=== PATIENT | female | born 1935 | race Caucasian/White ===

== ENCOUNTER → 2021-05-08 | Outpatient (CLI) | payer OTHER ==
[2021-05-08 18:34] LABS: HEMOGLOBIN 12.9 gm/dl (12.3-15.3); RED BLOOD COUNT 4.28 M/UL (4.00-5.10); WHITE BLOOD COUNT 11.4 K/UL (4.5-11.0)
[2021-05-08 18:53] LABS: BUN/CREATININE RATIO 22 (0-10)
== END ==
LOC: LBRF 17:41
PROVIDERS: Family Medicine
DX: I13.0 Hypertensive heart and chronic kidney disease with heart failure and stage 1 through stage 4 chronic kidney disease, or unspecified chronic kidney disease (principal); I50.32 Chronic diastolic (congestive) heart failure; N18.9 Chronic kidney disease, unspecified
CPT/HCPCS: 80053; 85027

== ENCOUNTER 2021-09-15 14:22 | Inpatient (IN) | payer OTHER ==
[~2021-09-15] VITALS: Ht 162.6 cm; Wt 71.2 kg
[2021-09-15 15:21] LABS: RED BLOOD COUNT 4.46 M/UL (4.00-5.10)
[2021-09-15 15:42] LABS: BUN/CREATININE RATIO 15 (0-10)
[2021-09-16 02:45] LABS: RED BLOOD COUNT 4.12 M/UL (4.00-5.10)
[2021-09-16 03:21] LABS: BUN/CREATININE RATIO 21 (0-10)
[2021-09-16] MEDS ORDERED: LOSARTAN POTASS25 MG PO (09:19)
[2021-09-16] MEDS ORDERED: MONTELUKAST SOD10 MG PO (09:19)
[2021-09-16] MEDS ORDERED: RALOXIFENE HCL60 MG PO (09:19)
[2021-09-16] MEDS ORDERED: NAMENDA10 MG PO (09:19)
[2021-09-16] MEDS ORDERED: MULTI-VITAMIN1 EACH PO (09:20)
[2021-09-16] MEDS ORDERED: DRISDOL1250 MCG PO (09:20)
[2021-09-16] MEDS ORDERED: DORZOLAMIDE HCL10 ML OU (09:20)
[2021-09-16] MEDS ORDERED: VITAMIN D325 MC6 PO (09:21)
--- NOTE | 2021-09-17 00:37 | NUR ---
DURING BEDSIDE REPORT DAYSHIFT RN STATED THAT "PATIENT ONLY HAD A WORING STRIP ALARM ON, THE BED ALARM WAS NOT WORKING". AFTER ASSESSING THE BED TO SEE WHY THE ALARM WAS NOT TURNING ON, i ALSO NOTICED THAT NONE OF THE ELECTRICAL CONTROLS WERE WORKING. I LOOKED AND THE BED WAS UNPLUGGED FROM THE ELECTRICAL OUTLET ON THE WALL. BED IS NOW PLUGGED IN AND BOTH THE BED AND STRIP ARLAM ARE ON AND WORKING.
--- NOTE | 2021-09-17 00:41 | NUR ---
[id number] PATIENT HAD A LARGE BM AND BEGAN TO PUT TISSUES DOWN IN HER BRIEF. HER HANDS AND GOWN WERE COVERED IN BM. SHE WAS REFUSING TO ALLOW THE TECH TO CHANGE HER. I ASKED ANOTHER RN TO HELP WITH CHANGING HER. THE PATIENT BEGAN TO PINCH AND DIG HER NAILS INTO US WE TRIED TO CHANGE HER. WE DID INFACT GET THE PATIENT ALL CLEANED UP AND INTO A NEW GOWN A BRIEF BUT SHE WAS CONFUSED AND COMBATIVE DURING THE PROCESS.
[2021-09-17 03:33] LABS: HEMOGLOBIN 12.3 gm/dl (12.3-15.3); RED BLOOD COUNT 4.18 M/UL (4.00-5.10); WHITE BLOOD COUNT 18.4 K/UL (4.5-11.0)
[2021-09-17 04:10] LABS: BUN/CREATININE RATIO 24 (0-10)
[2021-09-18 03:33] LABS: HEMOGLOBIN 11.6 gm/dl (12.3-15.3); RED BLOOD COUNT 4.01 M/UL (4.00-5.10)
[2021-09-18 04:15] LABS: BUN/CREATININE RATIO 18 (0-10); WHITE BLOOD COUNT 13.3 K/UL (4.5-11.0)
[2021-09-18 12:59] LABS: WHITE BLOOD COUNT 23.5 K/UL (4.5-11.0)
--- NOTE | 2021-09-18 17:45 | NUR ---
pt tansported per ems to home daughter aware. call to home health message left with no return call at this [email or web address].
== END 2021-09-18 17:01 | disposition home health service (06) | DRG 871 ==
LOC: ER1 14:22 → M/S 17:22 → CDU 17:22 → M/S 19:37
PROVIDERS: Internal Medicine; Physician Assistant; Physician Assistant Medical; ADMIT Internal Medicine
PROC: 3E03329 Introduction of Other Anti-infective into Peripheral Vein, Percutaneous Approach (ICD-10-PCS; principal; 2021-09-15)
PROC: 8E0ZXY6 Isolation (ICD-10-PCS; 2021-09-15)
DX: A41.89 Other specified sepsis (principal); U07.1 COVID-19; G93.41 Metabolic encephalopathy; N30.01 Acute cystitis with hematuria; J96.11 Chronic respiratory failure with hypoxia; R53.81 Other malaise; I10 Essential (primary) hypertension; E83.42 Hypomagnesemia; F03.90 Unspecified dementia, unspecified severity, without behavioral disturbance, psychotic disturbance, mood disturbance, and anxiety; B96.1 Klebsiella pneumoniae [K. pneumoniae] as the cause of diseases classified elsewhere; Z74.01 Bed confinement status; Z99.81 Dependence on supplemental oxygen; Z87.81 Personal history of (healed) traumatic fracture; Z98.42 Cataract extraction status, left eye; Z98.41 Cataract extraction status, right eye
CPT/HCPCS: 0240U; 36415; 71045; 80048; 80053; 81001; 82550; 82553; 83605; 83735; 84484; 85025; 85027; 87040; 87077; 87086; 87186; 93005; 94640; 94664; 94760; 96374; 97110-GP-CQ; 97162; 97530; 97530-GP-CQ; 99285; G0378; J0696; J1650; J7030